=== PATIENT | male | born 1980 | race Caucasian/White ===

== ENCOUNTER 2020-01-03 14:52 | Emergency (ER) | payer OTHER, SELFPAY ==
[2020-01-03 15:26] VITALS: BP 97/58; PULSE 72; RESP 18; TEMP 36.7; O2SAT 98; BMI 25.8
--- NOTE | 2020-01-03 17:54 | CT_ITS ---
EXAMINATION: CT ABDOMEN AND PELVIS WITH CONTRAST CLINICAL INFORMATION: PT C N/V/D AND RLQ ABD PAIN X 2 DAYS ? APPY VS STONES COMPARISON: 02/15/2017 CT scan TECHNIQUE: Multidetector volumetric imaging was performed from the superior aspect of the liver through the pubic symphysis following administration of 100 mL Omnipaque 350 intravenous contrast. Sagittal and coronal reformatted images were obtained on the technologist workstation.. This CT examination was performed using dose optimization techniques as appropriate, variously including the following: *Automated exposure control *Adjustment of mA and/or kV according to patient size (this includes techniques or standardized protocols for targeted exams where dose is matched to indication/reason for exam; i.e. extremities or head) *Use of iterative reconstruction technique DLP: 434 mGy-cm FINDINGS: LUNG BASES: Mild linear scarring or atelectasis at the right base. LIVER, GALLBLADDER, AND BILIARY TREE: The liver is normal in size, shape, and attenuation. No focal hepatic lesion or biliary ductal dilatation is present. The gallbladder is unremarkable with no evidence of radiopaque gallstones, gallbladder wall thickening, or obvious pericholecystic inflammatory changes. PANCREAS: Unremarkable. SPLEEN: Unremarkable. ADRENAL GLANDS: Unremarkable. KIDNEYS AND URETERS: The kidneys are normal in size, shape, and attenuation. No hydronephrosis, hydroureter, or calculi seen. No perinephric stranding. BLADDER: Unremarkable. GASTROINTESTINAL TRACT: There is scattered colonic diverticulosis but no evidence for diverticulitis. No colonic wall thickening or pericolonic inflammatory changes. Normal-appearing appendix in the right lower quadrant. Visualized small bowel unremarkable. ABDOMINAL WALL: No significant hernia is appreciated. LYMPHOVASCULAR STRUCTURES: No lymphadenopathy. The aorta is unremarkable. PELVIC VISCERA: Unremarkable. OSSEOUS STRUCTURES: Unremarkable. CT/CT abdomen pelvis w con IMPRESSION: No acute intra-abdominal process. No significant change from the 2017 study.
--- NOTE | 2020-01-03 17:55 | ED.NAVMDI ---
HPI - Nausea/Vomiting/Diarrhea General Chief complaint: Nausea/Vomiting/Diarrhea Stated complaint: VOMITING,ABDOMINAL PAIN,FEVER Time Seen by Provider: 01/03/20 17:32 Source: patient Mode of arrival: ambulatory Limitations: no limitations History of Present Illness HPI Narrative: 39yoM c PMHx of dementia and seizure disorder presenting to the ED c c/o N/V/D and RLQ bd pain x 2 days. Denies any other symptoms complaints or concerns at this time. Denies recent travel or sick contacts. Denies bad food exposure. Related Data Previous Rx's Medication Instructions Recorded levetiracetam 1,000 mg tablet 1,000 mg PO BID 30 Days #60 tab 12/15/19 Allergies Allergy/AdvReac Type Severity Reaction Status Date / Time tramadol Allergy Unknown seizure Verified 08/20/18 00:00 No Known Allergies Allergy Unverified 11/24/19 16:19 [No Known Allergies*] Buproprion Allergy Unknown nausea and Uncoded 08/20/18 00:00 vomiting Review of Systems Review of Systems: Constitutional : No Fever, No Chills, Cardiovascular : No Chest Pain, No SOB Respiratory : No Cough, No Sputum Gastrointestinal : + Nausea, + Vomiting, + Diarrhea, + abdominal Pain, No Hematochezia, No Melena Genitourinary : No Dysuria, No Urinary Frequency, No Hematuria, No Urinary Incontinence, No Urgency, No Flank Pain Musculoskeletal : No joint pain, No Myalgias, No Joint Swelling Skin : No Skin Lesions, No rash Neuro : No Weakness, No Numbness, No Paresthesias, No Loss of Consciousness, No Dizziness, No Headache Heme/Lymph: No Lymphadenopathy Yes all other systems are reviewed and are negative [facility] Past Medical History Attestation statement: The following information was validated with the patient. Medical History Dementia Seizures Social History Social History Smoking Status: Current every day smoker Use of substances other than those prescribed or required for medical reasons: No Advance Directives: No Advance Directives Information Provided: Yes Physical Exam Vital Signs: Vital Signs: Vital Signs Temp Pulse Resp BP Pulse Ox 01/03/20 18:09 87 14 119/78 01/03/20 15:26 98.0 F 72 18 97/58 L 98 Body Mass Index 25.8 vital signs have been reviewed as normal and appeared to be correct. Blood pressure normal. Heart rate normal. Respiration rate normal. Temperature normal. Oxygen saturation normal. Appearance: Alert. Oriented X3. No acute distress. Head: Normal external exam. Normocephalic. Atraumatic. No [place] signs noted. No raccoon eyes noted Eyes: PERRLA. EOMI. Conjunctiva and sclera normal. Eyelids normal. ENT: EAC normal. TM's Normal. Pharynx normal. Uvula midline. Moist mucous membranes. No trismus noted. No drooling noted. No muffled voice noted. Neck: Normal inspection. Neck supple. FROM. No adenopathy. Thyroid Normal. No meningeal signs. No neck mass noted. CVS: Normal heart rate and rhythm. Heart sound normal. No murmurs noted. Pulses normal throughout. Respiratory: No respiratory distress. Painless inspiration. Breath sounds normal. No wheezes/rales/rhonchi noted. Chest nontender. No accessory muscle usage noted or decreased air movement noted. Abdomen: Soft and TTP to RLQ. Bowel sounds normal in all 4 quadrants. No distention noted. No organomegaly noted. No visible injury noted. Back: No CVA tenderness. Full range of motion noted. Skin: Skin warm and dry. Normal skin color. Normal skin turgor. No rashes/lesions/lacerations noted. Extremities: No lower extremity edema. Extremities exhibit normal range of motion. Extremities nontender. Neuro: Oriented X 3. No motor deficit. No sensory deficit. Reflexes normal. Course Course Course Narrative: 17:34PM - 39yoM c PMHx of dementia and seizure disorder presenting to the ED c c/o N/V/D and RLQ bd pain x 2 days. Denies any other symptoms complaints or concerns at this time. Denies recent travel or sick contacts. Denies bad food exposure. - Concern for appendicitis vs kidney stone vs diverticulitis vs UTI. - Plan: Labs, CT scan of abd/pelvis c IV contrast. Provide symptomatic treatment with 4 mg of Zofran, 50 mg of Toradol, 1 L of fluids then re-evaluate. Reevaluation(s) Reevaluation #1: - all labs within normal limits. CT scan of abdomen and pelvis within normal limits no acute processes noted. Awaiting UA at this time. Will re-evaluate. Time: 19:31 Reevaluation #2: UA within normal limits no evidence of UTI. COVID swab pending at this time. Will DC home with symptomatic treatment as patient is tolerating p.o. at this time and instructions to return if any new or worsening symptoms to follow-up with primary care provider. Patient understands agrees the plan. Time: 20:20 MDM - Nausea/Vomiting/Diarrhea Medical Records Attestation: I reviewed the patient's medical records. Lab Data Attestation: I reviewed the patient's lab results. Result diagrams: 01/03/20 17:54 01/03/20 17:53 Labs: Lab Results 01/03/20 01/03/20 01/03/20 Range/Units 17:53 17:54 17:54 WBC 10.0 (4.8-10.8) X10*3/uL RBC 4.50 L (4.60-5.80) X10*6/uL Hgb 13.1 L (14.0-18.0) g/dl Hct 39.9 L (42-52) % MCV 88.7 (80-98) fL MCH 29.1 (27.0-33.0) pg MCHC 32.8 (31.0-36.0) g/dl RDW 13.4 (11.0-16.0) % Plt Count 190 (160-400) X10*3/uL MPV 9.6 (9.4-12.4) fL Immature Gran % (Auto) 0.4 (0.0-0.4) % Neut % (Auto) 78.0 H (45-73) % Lymph % (Auto) 15.9 L (20-40) % [place] % (Auto) 5.3 (2-11) % Eos % (Auto) 0.1 (0-4) % Baso % (Auto) 0.3 (0-2) % Lymph # (Auto) 1.6 (1.2-4.9) X10*3/uL [place] # (Auto) 0.5 (0.1-1.2) X10*3/uL Eos # (Auto) 0.0 (0.0-0.4) X10*3/uL Baso # (Auto) 0.0 (0.0-0.2) X10*3/uL Abs Immat Gran (auto) 0.04 H (0.00-0.03) X10*3/uL Absolute Neuts (auto) 7.8 (2.0-8.3) X10*3/uL Absolute Nucleated RBC 0.000 (0.0-0.012) X10*3/uL Nucleated RBC % (auto) 0.0 (0.0-0.2) /100WBC PT 14.0 H (10.8-13.0) SEC INR 1.2 H (0.9-1.1) Sodium 139 (135-145) mmol/L Potassium 4.4 (3.3-5.1) mmol/l Chloride 100 (96-108) mmol/L Carbon Dioxide 30 H (22-29) mmol/L Anion Gap 13 (12-20) BUN 14 (9-16) mg/dL Creatinine 0.78 (0.5-1.4) mg/dL Estim Creat Clear Calc 115.8 Estimated GFR > 60 Random Glucose 107 (60-115) mg/dL Calcium 9.1 (8.4-10.2) mg/dL Magnesium 2.3 (1.6-2.6) mg/dL Total Bilirubin 0.5 (0.0-1.0) mg/dL Direct Bilirubin 0.2 (0.0-0.5) mg/dL AST 30 (5-37) U/L ALT 29 (0-40) U/L Alkaline Phosphatase 69 (39-117) U/L Total Protein 7.7 (6.5-8.0) g/dL Albumin 4.5 (3.5-5.0) g/dL Urine Color Urine Appearance Urine pH (5.0-8.0) Ur Specific [place] (1.005-1.025) Urine Protein (NEG-TRACE) MG/DL Urine Glucose (UA) (NEG) MG/DL Urine Ketones (NEG) MG/DL Urine Blood (NEG) Urine Nitrite (NEG) Ur Leukocyte Esterase (NEG) Urine RBC (0) /HPF Urine WBC (0-4) /HPF Ur Squamous Epith Cells /LPF Urine Bacteria /LPF 01/02/ Range/Units 19:25 WBC (4.8-10.8) X10*3/uL RBC (4.60-5.80) X10*6/uL Hgb (14.0-18.0) g/dl Hct (42-52) % MCV (80-98) fL MCH (27.0-33.0) pg MCHC (31.0-36.0) g/dl RDW (11.0-16.0) % Plt Count (160-400) X10*3/uL MPV (9.4-12.4) fL Immature Gran % (Auto) (0.0-0.4) % Neut % (Auto) (45-73) % Lymph % (Auto) (20-40) % [place] % (Auto) (2-11) % Eos % (Auto) (0-4) % Baso % (Auto) (0-2) % Lymph # (Auto) (1.2-4.9) X10*3/uL [place] # (Auto) (0.1-1.2) X10*3/uL Eos # (Auto) (0.0-0.4) X10*3/uL Baso # (Auto) (0.0-0.2) X10*3/uL Abs Immat Gran (auto) (0.00-0.03) X10*3/uL Absolute Neuts (auto) (2.0-8.3) X10*3/uL Absolute Nucleated RBC (0.0-0.012) X10*3/uL Nucleated RBC % (auto) (0.0-0.2) /100WBC PT (10.8-13.0) SEC INR (0.9-1.1) Sodium (135-145) mmol/L Potassium (3.3-5.1) mmol/l Chloride (96-108) mmol/L Carbon Dioxide (22-29) mmol/L Anion Gap (12-20) BUN (9-16) mg/dL Creatinine (0.5-1.4) mg/dL Estim Creat Clear Calc Estimated GFR Random Glucose (60-115) mg/dL Calcium (8.4-10.2) mg/dL Magnesium (1.6-2.6) mg/dL Total Bilirubin (0.0-1.0) mg/dL Direct Bilirubin (0.0-0.5) mg/dL AST (5-37) U/L ALT (0-40) U/L Alkaline Phosphatase (39-117) U/L Total Protein (6.5-8.0) g/dL Albumin (3.5-5.0) g/dL Urine Color YELLOW Urine Appearance CLEAR Urine pH 7.5 (5.0-8.0) Ur Specific [place] <= 1.005 (1.005-1.025) Urine Protein NEG (NEG-TRACE) MG/DL Urine Glucose (UA) NEG (NEG) MG/DL Urine Ketones NEG (NEG) MG/DL Urine Blood TRACE (NEG) Urine Nitrite NEG (NEG) Ur Leukocyte Esterase NEG (NEG) Urine RBC 0-2 (0) /HPF Urine WBC 0-2 (0-4) /HPF Ur Squamous Epith Cells TRACE /LPF Urine Bacteria TRACE /LPF Imaging Data CT scan - abdomen: Attestation: I personally reviewed and interpreted this imaging study as follows: Radiologist's impression: FINDINGS: LUNG BASES: Mild linear scarring or atelectasis at the right base. LIVER, GALLBLADDER, AND BILIARY TREE: The liver is normal in size, shape, and attenuation. No focal hepatic lesion or biliary ductal dilatation is present. The gallbladder is unremarkable with no evidence of radiopaque gallstones, gallbladder wall thickening, or obvious pericholecystic inflammatory changes. PANCREAS: Unremarkable. SPLEEN: Unremarkable. ADRENAL GLANDS: Unremarkable. KIDNEYS AND URETERS: The kidneys are normal in size, shape, and attenuation. No hydronephrosis, hydroureter, or calculi seen. No perinephric stranding. BLADDER: Unremarkable. GASTROINTESTINAL TRACT: There is scattered colonic diverticulosis but no evidence for diverticulitis. No colonic wall thickening or pericolonic inflammatory changes. Normal-appearing appendix in the right lower quadrant. Visualized small bowel unremarkable. ABDOMINAL WALL: No significant hernia is appreciated. LYMPHOVASCULAR STRUCTURES: No lymphadenopathy. The aorta is unremarkable. PELVIC VISCERA: Unremarkable. OSSEOUS STRUCTURES: Unremarkable. CT/CT abdomen pelvis w con IMPRESSION: No acute intra-abdominal process. No significant change from the 2017 study. Discharge Plan Discharge Prescriptions: No Action levetiracetam 1,000 mg tablet 1,000 mg PO BID 30 Days Qty: 60 RF: 0
[2020-01-03] MEDS: 0.9 % Sodium Chloride 1,000 ML 999 ML IVCONT (17:56)
[2020-01-03 18:03] LABS: MANUAL DIFF FLAG NO
[2020-01-03 18:08] LABS: Basophils Percent Auto 0.3 % (0-2); Eosinophils Percent Auto 0.1 % (0-4); Hematocrit 39.9 % (42-52); Hemoglobin 13.1 g/dl (14.0-18.0); Imm Gran Abs Auto 0.04 X10*3/uL (0.00-0.03); Imm Gran Pct Auto 0.4 % (0.0-0.4); Lymphocytes Absolute Auto 1.6 X10*3/uL (1.2-4.9); Lymphocytes Percent Auto 15.9 % (20-40); Mean Corpuscular HGB Conc 32.8 g/dl (31.0-36.0); Mean Corpuscular Hemoglobin 29.1 pg (27.0-33.0); Mean Corpuscular Volume 88.7 fL (80-98); Mean Platelet Volume 9.6 fL (9.4-12.4); Monocytes Absolute Auto 0.5 X10*3/uL (0.1-1.2); Monocytes Percent Auto 5.3 % (2-11); Neutrophils Absolute Auto 7.8 X10*3/uL (2.0-8.3); Platelet Count 190 X10*3/uL (160-400); Red Cell Distribution Width 13.4 % (11.0-16.0)
[2020-01-03] MEDS: ondansetron HCL 4 MG/2 ML VIAL IVPUSH (18:08)
[2020-01-03 18:09] VITALS: BP 119/78; PULSE 87; RESP 14
[2020-01-03] MEDS: Ketorolac Tromethamine 15 MG/ML VIAL IV (18:09)
[2020-01-03 18:14] LABS: INTERNATIONAL NORM RATIO 1.2 (0.9-1.1)
[2020-01-03 18:42] LABS: Alanine Aminotransferase 29 U/L (0-40); Albumin Level 4.5 g/dL (3.5-5.0); Alkaline Phosphatase 69 U/L (39-117); Anion Gap 13 (12-20); Aspartate Amino Transferase 30 U/L (5-37); Bilirubin Direct 0.2 mg/dL (0.0-0.5); Bilirubin Total 0.5 mg/dL (0.0-1.0); Blood Urea Nitrogen 14 mg/dL (9-16); Calcium 9.1 mg/dL (8.4-10.2); Carbon Dioxide 30 mmol/L (22-29); Chloride 100 mmol/L (96-108); Creatinine Clr Calc Pharmacy 115.8; Estimated Glomerular Filt Rate > 60; Glucose Random 107 mg/dL (60-115); Magnesium 2.3 mg/dL (1.6-2.6); Potassium 4.4 mmol/l (3.3-5.1); Sodium 139 mmol/L (135-145); Total Protein 7.7 g/dL (6.5-8.0)
[2020-01-03] MEDS: iohexoL 350 MG/ML 100 ML INFUS..BTL IV (19:00)
[2020-01-03 19:32] LABS: Glucose Urine UA NEG (NEG); Leukocyte Esterase Urine NEG (NEG); Nitrite Urine NEG (NEG); PH 7.5 (5.0-8.0); Specific Gravity - Urine <= 1.005 (1.005-1.025); Urine Blood TRACE (NEG); Urine Ketones NEG (NEG); Urine Protein NEG (NEG-TRACE)
[2020-01-03 19:37] LABS: RBC Urine 0-2 /HPF (0); WBC Urine 0-2 /HPF (0-4)
[2020-01-03 19:38] LABS: Bacteria Urine TRACE /LPF; Squamous Epithelial Cell Urine TRACE /LPF
[2020-01-03 19:56] LABS: Appearance Urine CLEAR; Color Urine YELLOW
[2020-01-03 20:21] LABS: SARS COV2 PCR INHOUSE NEGATIVE (Negative)
[2020-01-03 20:36] VITALS: BP 91/42; PULSE 61; RESP 18; TEMP 37.2; O2SAT 98
== END 2020-01-03 20:42 | disposition home or self-care (01) ==
PROVIDERS: Physician Assistant Medical; Emergency Provider Internal Medicine; PCP Internal Medicine
DX: R10.31 Right lower quadrant pain (principal); G40.909 Epilepsy, unspecified, not intractable, without status epilepticus; F17.200 Nicotine dependence, unspecified, uncomplicated; Z20.828 Contact with and (suspected) exposure to other viral communicable diseases; Z71.6 Tobacco abuse counseling; Z79.899 Other long term (current) drug therapy
CPT/HCPCS: 36415; 74177; 80048; 80076; 81001; 83735; 85025; 85610; 87635; 96361; 96374; 96375; 96376; 99284; J1885; J2405; Q9967

== ENCOUNTER 2021-06-27 19:42 | Emergency (ER) | payer OTHER, SELFPAY ==
[2021-06-27 19:51] VITALS: BP 120/72; PULSE 87; RESP 18; TEMP 36.5; O2SAT 96; BMI 27.4
[2021-06-27] MEDS: LORazepam 1 MG TABLET PO (22:40)
[2021-06-27 22:45] VITALS: PULSE 77; RESP 17; O2SAT 97
[2021-06-27 22:48] VITALS: BP 118/69
--- NOTE | 2021-06-27 22:53 | ED_ITS ---
HPI - Seizure General Chief Complaint: Seizure Stated Complaint: Seizure Time Seen by Provider: 06/27/21 22:30 Source: patient and family (Father at the bedside who is a poor historian) Mode of arrival: ambulatory Limitations: no limitations and other (Patient poor historian) History of Present Illness HPI Narrative: This is a 40-year-old past medical history significant for epilepsy presenting to the emergency department complaints of seizure, this was a witnessed seizure that occurred prior to his arrival. According to father patient had a long- lasting seizure at the grocery store, he tells me that when it started he lowered patient down to a chair, he tells me his arms and legs were shaking. Patient tells me he felt like the seizure was coming on. He tells me he feels fine now, other than a diffuse headache which he describes as intermittent, stabbing he tells me it feels like his typical headache after seizures. He tells me the reason he had his seizure is because he ran out a seizure medicati ons. Patient tells me that he does not want to be in the hospital he did not want lab work or any scans. He tells me he wants to go home and does not want a stay. He tells me he will sign paperwork to leave against medical advice. I tried to educate patient he should stay for further evaluation he tells me that he does not want to stay. He denies chest pain, shortness of breath, fevers, chills, nausea, vomiting, trauma head, dizziness, vision changes. Patient answering questions appropriately alert and oriented x4. No bladder bowel incontinence. Patient denies recent illness, denies drugs, alcohol and tobacco. According to father there was a short episode of post event confusion/postictal state. To note, father also poor historian complaint: seizure Onset (ago): hour(s) (1) Description of Episode: loss of consciousness, tonic-clonic movement and post- event confusion -: minutes(s) (Unclear, patient's as a few seconds, father says 30 minutes. ) Witnessed: Yes - by Other (Yes father) Trauma: No Seizure History: Yes Place: Groceries Possible Precipitating Event: none Associated symptoms: denies other symptoms Treatments prior to arrival: none Related Data Previous Rx's Medication Instructions Recorded naproxen 500 mg tablet 500 mg PO BID PRN #10 tab 01/03/20 ondansetron HCl 4 mg tablet 4 mg PO Q6H PRN #10 tab 01/03/20 (Zofran) omeprazole 40 mg capsule,delayed 40 mg PO DAILY 90 Days #90 cap 07/16/20 release levetiracetam 1,000 mg tablet 1,000 mg PO BID 90 Days #180 tab 04/16/21 levetiracetam 1,000 mg tablet 1,000 mg PO BID 10 Days #20 tab 06/27/21 Allergies Allergy/AdvReac Type Severity Reaction Status Date / Time bupropion Allergy Unknown nausea and Verified 01/04/20 14:16 vomitting tramadol Allergy Unknown seizure Verified 01/04/20 14:16 Review of Systems Review of Systems: Constitutional : No Weight loss, No Fever, No Chills, No Fatigue, No Malaise ENT/Mouth : No sore throat, No Rhinorrhea Eyes: No Eye Pain, No Swelling, No Redness Cardiovascular : No Chest Pain, No SOB, No Dyspnea on Exertion, No Orthopnea, No Edema, No Palpitations Respiratory : No Cough, No Sputum, No Wheezing Gastrointestinal : No Nausea, No Vomiting, No Diarrhea, No Constipation, No abdominal Pain, No Hematochezia, No Melena Genitourinary : No Dysuria, No Urinary Frequency, No Hematuria, Musculoskeletal : No joint pain, No Myalgias, No Joint Swelling Skin : No Skin Lesions, No rash Neuro : No Weakness, No Numbness, No Dizziness, + Headache Psych : No Anxiety/Panic, No Depression All other systems reviewed and are negative Yes all other systems are reviewed and are negative [facility] Past Medical History Attestation statement: The following information was validated with the patient. Source: old records reviewed and nursing notes reviewed Medical History Anxiety and depression Diaphragmatic hernia GERD (gastroesophageal reflux disease) Migraine Polysubstance abuse Psychogenic nonepileptic seizure Right rib fracture Skull fracture Thrombocytopenia Tobacco abuse Vitamin D deficiency Family History Family History Father Diabetes Mother Chronic mental illness Breast cancer Dementia Maternal Grandmother Lung cancer Maternal Grandfather Lung cancer Social History Social History Advance Directives: No Physical Exam Vital Signs: Vital Signs: Last Vital Signs Temp 97.7 F 06/27/21 19:51 Pulse 77 06/27/21 22:45 Resp 17 06/27/21 22:45 BP 118/69 06/27/21 22:48 Pulse Ox 97 06/27/21 22:45 BMI result Body Mass Index 27.4 Vital signs stable Appearance: Alert.? Oriented X3.? No acute distress.? Head: Normocephalic, atraumatic, no step-offs or deformities Eyes: Pupils equal, round and reactive to light.? ENT: Pharynx normal.? Neck: Normal inspection.? Neck supple.? CVS: Normal heart rate and rhythm.? Pulses normal.? Respiratory: No respiratory distress.? Breath sounds normal.? Abdomen: Soft and nontender.? Skin: Skin warm and dry.? Normal skin color.? Normal skin turgor.? Extremities: No lower extremity edema.? No calf ttp. 5/5 strength to bilateral upper and lower extremities Back: No midline tenderness, no C-spine tenderness, full range of motion, no CVA tenderness bilaterally Neuro: Oriented X 3.? No motor deficit.? No sensory deficit. CN 2-12 intact Course Reevaluation(s) Reevaluation #1: Patient continues to tell me that he would like to leave against medical advice. Refusing all labs, imaging, cardiac monitoring. Explained risks and benefits to patient. Patient tells me he would like to leave. I will refill patient's Keppra prescription at 1000 mg p.o. b.i.d. times 10 days. I advised him to follow-up with his PCP to discuss dosage, and to fill his prescription [place]. Advised him to return at any time. Advised him on worrisome signs and symptoms. Patient tells me he does not want to stay even after warning him of all the potential risks. He tells me he cannot stay as he has a monitor on his ankle and it is going to he says. He tells me it is not up for discussion. Time: 23:01 MDM - Seizure MDM Narrative Medical decision making narrative: [id number] 40-year-old male presents to the emergency department status post seizure. He was brought in by his brother. Father at the bedside who witness patient's seizure. Patient does not want labs or imaging done. He just wants a refill on his Keppra. Patient and father poor historians unable to obtain a clear history. Patient tells me he ran out of his medication. Physical examination benign. Patient tells me he feels well. Regular rate and rhythm. Lungs clear. Neuro exam nonfocal. No nystagmus noted. Abdomen soft nontender nondistended. No evidence signs of trauma. Plan at this time is to order labs, imaging. I will give 1 mg of Ativan p.o.. Medical Records Attestation: I reviewed the patient's medical records. Lab Data Attestation: I reviewed the patient's lab results. Critical Care Time Critical Care Time Critical Care Time: No Discharge Plan Discharge Clinical Impression: Seizure, Left against medical advice Patient Disposition: Left Against Medical Advice Instructions: Nonepileptic Seizures (ED), Recurrent Seizures in Adults (ED), Epilepsy in Older Adults (ED) Additional Instructions: Take your medications as prescribed. If you were prescribed antibiotics today, it is important that you take your medication to their entirety, do not skip any doses, do not finish them early. Follow-up with your primary care provider this week. Return to the emergency department with new or worsening symptoms. Such as fevers, chills, chest pain, shortness of breath, nausea, vomiting, dizziness, headache, vision changes, lethargy In case of emergency call 911 You decided to leave against medical advice which means that there could be decreased quality of life, worsening symptoms, heart attack, stroke, , more seizures, new symptoms, undiagnosed medical concerns/issues. I gave you a 10 day supply of your seizure medications you should call your PCP in asked him to fill your prescription. Prescriptions: New levetiracetam 1,000 mg tablet 1,000 mg PO BID 10 Days Qty: 20 0RF No Action omeprazole 40 mg capsule,delayed release(DR/EC) 40 mg PO DAILY 90 Days Qty: 90 2RF levetiracetam 1,000 mg tablet 1,000 mg PO BID 90 Days Qty: 180 0RF ondansetron HCl [Zofran] 4 mg tablet 4 mg PO Q6H PRN (Reason: nausea and vomiting) Qty: 10 0RF naproxen 500 mg tablet 500 mg PO BID PRN (Reason: pain) Qty: 10 0RF Referrals: Terry Pritchard MD [Primary Care Provider] - 2 days Stand Alone Forms: Against Medical Advice
[2021-06-27] MEDS: levETIRAcetam 1,000 MG TABLET 1000 MG PO (22:57)
== END 2021-06-27 23:06 | disposition left against medical advice (07) ==
PROVIDERS: Emergency Provider Internal Medicine; PCP Internal Medicine
DX: R56.9 Unspecified convulsions (principal); Z79.899 Other long term (current) drug therapy
CPT/HCPCS: 99283; 99284

== ENCOUNTER 2022-02-11 14:11 | Emergency (ER) | payer OTHER, SELFPAY ==
--- NOTE | ~2022-02-11 | XR_ITS ---
EXAMINATION: XR CHEST CLINICAL INFORMATION: Seizure yesterday. COMPARISON: Chest radiographs dated 02/14/2017, CT scans of the abdomen and pelvis dated 01/03/2020 TECHNIQUE: Frontal view of the chest was obtained. FINDINGS: The lungs are clear. There are no pleural effusions. The heart and mediastinal structures are unremarkable. A central right diaphragmatic hernia is again seen without significant change. XR/XR chest 1V IMPRESSION: 1. No acute cardiopulmonary process. 2. Right diaphragmatic hernia without significant change.
--- NOTE | 2022-02-11 14:55 | ED_ITS ---
HPI - General Adult General Chief complaint: Seizure <Katarina Velez MD - Last Filed: 02/11/22 15:00> Stated complaint: Needs medication for seizures <Katarina Velez MD - Last Filed: 02/11/22 15:00> Time Seen by Provider: 02/11/22 17:19 <Katarina Velez MD - Last Filed: 02/11/22 15:00> Source: patient <NORMAN Gutierrez - Last Filed: 02/11/22 19:40> Mode of arrival: ambulatory <NORMAN Gutierrez - Last Filed: 02/11/22 19:40> History of Present Illness HPI narrative: 41-year-old male with a past medical history anxiety, depression, GERD, migraines, polysubstance abuse, thrombocytopenia, epilepsy on Keppra, presenting to the ED complaining c/o seizure yesterday, and running out of Keppra today. States has been incarcerated and unable to see PCP thus ran out of medications. Reports ran out today. Admits seizure yesterday with +chin strike, denies urinary incontinence/tongue biting. Tetanus unknown. Denies headache, nausea, vomiting, numbness, tingling, weakness, CP/SOB, abdominal pain, fever, N/V, cough <NORMAN Gutierrez - Last Filed: 02/11/22 19:40> Onset (ago): day(s) <NORMAN Gutierrez - Last Filed: 02/11/22 19:40> Related Data Home medications: Previous Rx's Medication Instructions Recorded naproxen 500 mg tablet 500 mg PO BID PRN pain #10 tabs 01/03/20 ondansetron HCl 4 mg tablet 4 mg PO Q6H PRN nausea and 01/03/20 (Zofran) vomiting #10 tabs omeprazole 40 mg capsule,delayed 40 mg PO DAILY 90 days #90 caps 07/16/20 release levetiracetam 1,000 mg tablet 1,000 mg PO BID 90 days #180 tabs 04/16/21 levetiracetam 1,000 mg tablet 1,000 mg PO BID 30 days #60 tabs 10/04/21 levetiracetam 1,000 mg tablet 1,000 mg PO BID 30 days #60 tabs 02/11/22 (Denise) <Katarina Velez MD - Last Filed: 02/11/22 15:00> Allergies/adverse reactions: Allergies Allergy/AdvReac Type Severity Reaction Status Date / Time bupropion Allergy Unknown nausea and Verified 01/04/20 14:16 vomitting tramadol Allergy Unknown seizure Verified 01/04/20 14:16 <Katarina Velez MD - Last Filed: 02/11/22 15:00> Review of Systems Review of Systems: Constitutional: No Fever, No Chills, No Fatigue, No Malaise ENT/Mouth: No Ear Pain, No Nasal Congestion, No sore throat, No Rhinorrhea, No Swallowing Difficulty Eyes: No Eye Pain, No Swelling, No Redness, No Vision Changes Cardiovascular: No Chest Pain, No SOB, No Edema, No Palpitations Respiratory: No Cough, No Sputum, No Dyspnea Gastrointestinal: No Nausea, No Vomiting, No Diarrhea, No Constipation, No Abdominal pain Genitourinary: No Dysuria, No Urinary Frequency, No Hematuria, No Urinary Incontinence/retention Musculoskeletal: No joint pain, No Myalgias, No Joint Swelling Skin: + Skin Lesions, No rash Neuro: No Weakness, No Numbness, No Paresthesias, +Seizure, No Dizziness, +Head strike, No Headache <NORMAN Gutierrez - Last Filed: 02/11/22 19:40> Yes all other systems are reviewed and are negative <NORMAN Gutierrez - Last Filed: 02/11/22 19:40> Constitutional: Constitutional: Reports as per HPI <NORMAN Gutierrez - Last Filed: 02/11/22 19:40> Neurologic: Denies Abnormal speech present <NORMAN Gutierrez - Last Filed: 02/11/22 19:40> [facility] Past Medical History Attestation statement: The following information was validated with the patient. <NORMAN Gutierrez - Last Filed: 02/11/22 19:40> Medical History: Medical History Anxiety and depression Diaphragmatic hernia GERD (gastroesophageal reflux disease) Migraine Polysubstance abuse Psychogenic nonepileptic seizure Right rib fracture Skull fracture Thrombocytopenia Tobacco abuse Vitamin D deficiency <Katarina Velez MD - Last Filed: 02/11/22 15:00> Family History Family History: Family History Father Diabetes Mother Chronic mental illness Breast cancer Dementia Maternal Grandmother Lung cancer Maternal Grandfather Lung cancer <Katarina Velez MD - Last Filed: 02/11/22 15:00> Social History Social History: Social History Advance Directives: No Advance Directives Information Provided: No <Katarina Velez MD - Last Filed: 02/11/22 15:00> Physical Exam ED Vital Signs: Vital Signs - 24 hr 02/11/22 14:56 02/11/22 19:26 Temperature 97.9 F 97.6 F Pulse Rate 74 63 Respiratory Rate 16 16 Blood Pressure 95/53 L 93/55 L Pulse Oximetry 100 98 Oxygen Delivery Method Room Air Room Air BMI result Body Mass Index 25.8 <Katarina Velez MD - Last Filed: 02/11/22 15:00> Vital Signs - 24 hr 02/11/22 14:56 02/11/22 19:26 Temperature 97.9 F 97.6 F Pulse Rate 74 63 Respiratory Rate 16 16 Blood Pressure 95/53 L 93/55 L Pulse Oximetry 100 98 Oxygen Delivery Method Room Air Room Air BMI result Body Mass Index 25.8 <NORMAN Gutierrez - Last Filed: 02/11/22 19:40> Const General: cooperative, healthy appearing and no acute distress <NORMAN Gutierrez - Last Filed: 02/11/22 19:40> Orientation/consciousness: patient oriented x3 <NORMAN Gutierrez - Last Filed: 02/11/22 19:40> Limitations: no limitations <NORMAN Gutierrez - Last Filed: 02/11/22 19:40> HENMT Head: Yes normal to inspection, Yes atraumatic, No Grande's sign and No palpable skull fracture <NORMAN Gutierrez - Last Filed: 02/11/22 19:40> Ears: hearing grossly normal bilaterally <NORMAN Gutierrez - Last Filed: 02/11/22 19:40> General nose exam: Normal external nose present <NORMAN Gutierrez - Last Filed: 02/11/22 19:40> Face and sinus: Yes laceration (+ scabbed over laceration noted to chin with mild tenderness to palpation.) <NORMAN Gutierrez - Last Filed: 02/11/22 19:40> Mouth: Normal oral and palatal mucosa present <Ayanna Rodas CA - Last Filed: 02/11/22 19:40> Teeth and gingiva: dentition normal <Ayanna Rodas CA - Last Filed: 02/11/22 19:40> Throat: Yes posterior oropharynx normal, Yes tonsils normal and Yes uvula midline <Ayanna Rodas CA - Last Filed: 02/11/22 19:40> Eyes General: appearance normal, both eyes and all related structures <Ayanna Rodas CA - Last Filed: 02/11/22 19:40> Pupils: Equal, round and reactive pupils present <Ayanna Rodas CA - Last Filed: 02/11/22 19:40> EOM: EOMs intact bilaterally <Ayanna Rodas CA - Last Filed: 02/11/22 19:40> Neck Other: no midline cervical spinous ttp <Ayanna Rodas CA - Last Filed: 02/11/22 19:40> Neck: Yes normal visual inspection and Yes no meningeal signs <Ayanna Rodas CA - Last Filed: 02/11/22 19:40> Resp Effort & Inspection: normal respiratory effort and no respiratory distress <NORMAN Gutierrez - Last Filed: 02/11/22 19:40> Auscultation: clear to auscultation bilaterally, no crackles, no rales and no rhonchi <Ayanna Rodas CA - Last Filed: 02/11/22 19:40> Cardio Rate: regular rate <NORMAN Gutierrez - Last Filed: 02/11/22 19:40> Heart sounds: S1 normal heart sound present and S2 normal heart sound present <NORMAN Gutierrez - Last Filed: 02/11/22 19:40> GI Inspection: Yes normal to inspection <Ayanna Rodas CA - Last Filed: 02/11/22 19:40> Palpation (GI): Soft to palpation, nontender, no guarding and not rigid <Ayanna Poulletitiat, PA - Last Filed: 02/11/22 19:40> General: Yes no CVA tenderness <Ayanna Pouliot, PA - Last Filed: 02/11/22 19:40> Back/Spine/Pelvis Other: No midline thoracic/lumbar spinous tenderness/step-off or deformity <Ayanna Pouliot, PA - Last Filed: 02/11/22 19:40> Back: no CVA tenderness <Ayanna Pouliot, PA - Last Filed: 02/11/22 19:40> Skin Rashes: no rashes <Ayanna Pouliot, PA - Last Filed: 02/11/22 19:40> Neuro General: patient oriented x3, gait normal, tone normal, no meningeal signs, no focal motor deficits and CN's II-XI intact bilaterally <Ayanna Poulletitiat, PA - Last Filed: 02/11/22 19:40> Cranial nerves: Yes CN's II-XII intact bilaterally and Yes Equal, round and reactive pupils present <Ayanna Poulletitiat, PA - Last Filed: 02/11/22 19:40> Cognition (Neuro): normal cognition <Ayanna Poulletitiat PA - Last Filed: 02/11/22 19:40> Speech: No Abnormal speech present <Ayanna Poulletitiat PA - Last Filed: 02/11/22 19:40> Gait exam (Neuro): Normal gait present <Ayanna Poulletitiat PA - Last Filed: 02/11/22 19:40> Motor exam (neuro): 5/5 motor strength present throughout, Pronator motor function not present and no tremor noted <Ayanna Poulletitiat, PA - Last Filed: 02/11/22 19:40> Coordination: [id number] test normal <Ayanna Poulletitiat PA - Last Filed: 02/11/22 19:40> Romberg Test: Negative <Ayanna Poulletitiat, PA - Last Filed: 02/11/22 19:40> Extrem General: Yes normal to inspection <Ayanna Rodas PA - Last Filed: 02/11/22 19:40> Course Course Course Narrative: 41M p/w request for seizure medication and states he had a seizure yesterday. Says [facility] and is having difficulty getting in to see a PCP for script renewals. VS Reviewed GEN: NAD EARS: wnl THROAT: wnl LUNGS: CTAB CVS: RRR ABD: NT/ND <Katarina Velez MD - Last Filed: 02/11/22 15:00> 41M p/w request for seizure medication and states he had a seizure yesterday. Says he got out of pen[facility] and is having difficulty getting in to see a PCP for script renewals. VS Reviewed GEN: NAD EARS: wnl THROAT: wnl LUNGS: CTAB CVS: RRR ABD: NT/ND -1756--mild leukocytosis of 15.1 > no evidence of infection, low suspicion for severe sepsis. H&H stable. Labs otherwise reassuring -COVID & flu negative -UA not infected. Tox screen positive for opiates, Fentanyl, and cocaine XR chest 1V IMPRESSION: 1.? No acute cardiopulmonary process. 2.? Right diaphragmatic hernia without significant change. >> will give patient 1 month supply of Keppra, instructed close follow-up with PCP/neurology. Pts BP appears chronically on lower side, asymptomatic at this time. <NORMAN Gutierrez - Last Filed: 02/11/22 19:40> Medications Administered Discontinued Medications Generic Name Dose Route Start Last Admin Trade Name Freq PRN Reason Stop Dose Admin Diphtheria/Tetanus/Acell Pertussis 0.5 ml 02/11/22 17:36 02/11/22 18:38 Diphth,Pertus(Acell),Tet Adult 0.5 Ml Syringe IM 02/11/22 17:37 0.5 ml .ONCE ONE Administration Levetiracetam 1,000 mg 02/11/22 17:37 02/11/22 18:37 Levetiracetam 1,000 Mg Tablet PO 02/11/22 17:38 1,000 mg ONCE ONE Administration <Katarina Velez MD - Last Filed: 02/11/22 15:00> Medications Administered Discontinued Medications Generic Name Dose Route Start Last Admin Trade Name Freq PRN Reason Stop Dose Admin Diphtheria/Tetanus/Acell Pertussis 0.5 ml 02/11/22 17:36 02/11/22 18:38 Diphth,Pertus(Acell),Tet Adult 0.5 Ml Syringe IM 02/11/22 17:37 0.5 ml .ONCE ONE Administration Levetiracetam 1,000 mg 02/11/22 17:37 02/11/22 18:37 Levetiracetam 1,000 Mg Tablet PO 02/11/22 17:38 1,000 mg ONCE ONE Administration <NORMAN Gutierrez - Last Filed: 02/11/22 19:40> Medical Decision Making Medical Decision Making MDM Narrative: 41-year-old male with a past medical history anxiety, depression, GERD, migraines, polysubstance abuse, thrombocytopenia, epilepsy on Keppra, presenting to the ED complaining c/o seizure yesterday, and running out of Keppra today. On exam mildly hypotensive, NAD, scabbed laceration noted to chin, no midline spinous tenderness, no focal neuro deficits. Per medication refill history patient had a month's supply of Keppra filled on 01/16/2022. Rule out metabolic/infectious etiologies. Low suspicion for ICH/fractures. Will update tetanus. Offered to further investigate scabbed laceration/possible repair however patient refused Plan: Labs, UA, tox screen, CXR, medication refill <NORMAN Gutierrez - Last Filed: 02/11/22 19:40> Differential Diagnoses: Differential diagnosis Differential Diagnosis: The differential diagnosis associated with the patient?s presentation includes: as above <NORMAN Gutierrez - Last Filed: 02/11/22 19:40> Lab Attestation: I reviewed the patient's lab results. <NORMAN Gutierrez - Last Filed: 02/11/22 19:40> Non-ED record review: Review of External (Non-ED) Record External record reviewed:: Office record, Outpatient record, Prior outpatient labs and Prior outpatient radiology <NORMAN Gutierrez Last Filed: 02/11/22 19:40> Discharge Plan Discharge Clinical Impression: Medication refill, Seizure <Katarina Velez MD - Last Filed: 02/11/22 15:00> Patient Disposition: Home, Self-Care <Katarina Velez MD - Last Filed: 02/11/22 15:00> Instructions: Epilepsy in Older Adults (ED) <Katarina Velez MD - Last Filed: 02/11/22 15:00> Additional Instructions: Your blood work was reassuring. Your chest x-ray is unremarkable. IT IS IMPORTANT FOR YOU TO FOLLOW-UP WITH YOUR PRIMARY CARE DOCTOR PRIOR TO RUNNING OUT OF HER MEDICATIONS. IF YOU HAVE ANOTHER SEIZURE, HIT YOUR HEAD, HAVE HEADACHE, NAUSEA/VOMITING OR WEAKNESS RETURN TO THE EMERGENCY DEPARTMENT IMMEDIATELY <Katarina Velez MD - Last Filed: 02/11/22 15:00> Prescriptions: New levetiracetam [Keppra] 1,000 mg tablet 1,000 mg PO BID 30 Days Qty: 60 0RF No Action omeprazole 40 mg capsule,delayed release(DR/EC) 40 mg PO DAILY 90 Days Qty: 90 2RF levetiracetam 1,000 mg tablet 1,000 mg PO BID 90 Days Qty: 180 0RF levetiracetam 1,000 mg tablet 1,000 mg PO BID 30 Days Qty: 60 1RF ondansetron HCl [Zofran] 4 mg tablet 4 mg PO Q6H PRN (Reason: nausea and vomiting) Qty: 10 0RF naproxen 500 mg tablet 500 mg PO BID PRN (Reason: pain) Qty: 10 0RF <Katarina Velez MD - Last Filed: 02/11/22 15:00> Referrals: Po,Terry Levy MD [Primary Care Provider] - 3 days <Katarina Velez MD - Last Filed: 02/11/22 15:00>
[2022-02-11 14:56] VITALS: BP 95/53; PULSE 74; RESP 16; TEMP 36.6; O2SAT 100; BMI 25.8
[2022-02-11 15:59] LABS: MANUAL DIFF FLAG NO
[2022-02-11 16:06] LABS: Basophils Absolute Auto 0.1 X10*3/uL (0.0-0.2); Basophils Percent Auto 0.5 % (0-2); Eosinophils Absolute Auto 0.2 X10*3/uL (0.0-0.4); Eosinophils Percent Auto 1.5 % (0-4); Hematocrit 41.9 % (42.0-52.0); Hemoglobin 13.6 g/dl (14.0-18.0); Imm Gran Abs Auto 0.07 X10*3/uL (0.00-0.03); Imm Gran Pct Auto 0.5 % (0.0-0.4); Lymphocytes Absolute Auto 2.1 X10*3/uL (1.2-4.9); Lymphocytes Percent Auto 13.8 % (20-40); Mean Corpuscular HGB Conc 32.5 g/dl (31.0-36.0); Mean Corpuscular Hemoglobin 29.2 pg (27.0-33.0); Mean Corpuscular Volume 89.9 fL (80.0-98.0); Mean Platelet Volume 9.3 fL (9.4-12.4); Monocytes Absolute Auto 1.1 X10*3/uL (0.1-1.2); Monocytes Percent Auto 7.1 % (2-11); Neutrophils Absolute Auto 11.6 x10*3/uL (2.0-8.3); Neutrophils Percent Auto 76.6 % (45-73); Platelet Count 213 X10*3/uL (160-400); Red Blood Count 4.66 X10*6/uL (4.60-5.80); White Blood Count 15.1 X10*3/uL (4.8-10.8)
[2022-02-11 16:16] LABS: Alanine Aminotransferase 21 U/L (0-40); Albumin Level 4.3 g/dL (3.5-5.0); Alkaline Phosphatase 95 U/L (39-117); Anion Gap 10 (12-20); Aspartate Amino Transferase 18 U/L (5-37); Bilirubin Total 0.4 mg/dL (0.0-1.0); Blood Urea Nitrogen 10 mg/dL (9-16); Calcium 9.3 mg/dL (8.4-10.2); Carbon Dioxide 32 mmol/L (22-29); Chloride 102 mmol/L (96-108); Estimated Glomerular Filt Rate > 60; Glucose Random 92 mg/dL (60-115); Potassium 4.9 mmol/L (3.3-5.1); Sodium 139 mmol/L (135-145); Total Protein 7.3 g/dL (6.5-8.0)
[2022-02-11 16:23] LABS: COVID-19 Test Negative (Negative); IDNOW Serial# 16C4AD1C; IDNOW Serial# BCCEAD1C; Influenza A Negative (Negative); Influenza B2 Negative (Negative)
[2022-02-11 17:57] LABS: Magnesium 2.1 mg/dL (1.6-2.6)
[2022-02-11] MEDS: levETIRAcetam 1,000 MG TABLET 1000 MG PO (18:37)
[2022-02-11 18:38] LABS: Appearance Urine Clear; Color Urine Dark Yellow; Glucose Urine UA Negative (Negative); Leukocyte Esterase Urine Trace (Negative); Nitrite Urine Negative (Negative); Specific Gravity - Urine 1.025 (1.005-1.025); UMIC TRIGGER UACC YES; Urine Blood Negative (Negative); Urine Ketones Trace mg/dL (Negative); Urine Protein Negative (Neg-Trace)
[2022-02-11] MEDS: Diphth,Pertus(ACell),Tet Adult 0.5 ML SYRINGE IM (18:38)
[2022-02-11 18:43] LABS: Bacteria Urine None Seen (None Seen); Hyaline Casts Urine 0-2 /LPF (0-2); RBC Urine 0-2 /HPF (0-2); Squamous Epithelial Cell Urine 0-2 /HPF (0-2); WBC Urine 0-5 /HPF (0-5)
[2022-02-11 18:48] LABS: Amphetamine Screen Urine Not Detected (Not Detect); Barbiturates, Urine Not Detected (Not Detect); Benzodiazepines Screen Urine Not Detected (Not Detect); Cannabinoid Screen Urine Not Detected (Not Detect); Cocaine Screen Urine POSITIVE (Not Detect); Fentanyl, urine POSITIVE (Not Detect); Opiate Screen Urine POSITIVE (Not Detect); Phencyclidine Screen Urine Not Detected (Not Detect)
[2022-02-11 19:26] VITALS: BP 93/55; PULSE 63; RESP 16; TEMP 36.4; O2SAT 98
[2022-02-11 19:39] VITALS: BP 96/56
[2022-02-15 09:08] LABS: Levetiracetam Keppra 25.5 mcg/mL (6.0-46.0)
== END 2022-02-11 20:02 | disposition home or self-care (01) ==
PROVIDERS: Physician Assistant; Emergency Provider Student in an Organized Health Care Education/Training Program; PCP Internal Medicine
DX: S00.91XA Abrasion of unspecified part of head, initial encounter (principal); R56.9 Unspecified convulsions; R07.89 Other chest pain; W01.0XXA Fall on same level from slipping, tripping and stumbling without subsequent striking against object, initial encounter; Y93.9 Activity, unspecified; Y92.9 Unspecified place or not applicable; Y99.9 Unspecified external cause status; Z20.822 Contact with and (suspected) exposure to COVID-19; Z79.899 Other long term (current) drug therapy
CPT/HCPCS: 36415; 71045; 80053; 80177; 80307; 81001; 83735; 85025; 87502; 87635; 90471; 90715; 99283; 99284

== ENCOUNTER 2022-07-08 00:23 | Emergency (ER) | payer MEDICAID, SELFPAY ==
[2022-07-08 01:00] VITALS: BP 115/73; PULSE 80; RESP 18; TEMP 36.4; O2SAT 96; BMI 23.9
[2022-07-08 05:43] VITALS: BP 105/45; PULSE 62; RESP 15; TEMP 36.6; O2SAT 98
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
== END 2022-07-08 07:19 | disposition home or self-care (01) ==
PROVIDERS: Emergency Provider Internal Medicine
DX: Z76.0 Encounter for issue of repeat prescription (principal); Z79.899 Other long term (current) drug therapy
CPT/HCPCS: 99282

== ENCOUNTER 2023-01-22 15:15 | Outpatient (REF) | payer MEDICAID, SELFPAY ==
--- NOTE | ~2023-01-22 | XR_ITS ---
EXAMINATION: XR LUMBOSACRAL SPINE CLINICAL INFORMATION: Reason for Exam PAIN COMPARISON: Lumbar spine radiographs 12/31/2016 TECHNIQUE: 3 views of the lumbar spine FINDINGS: 5 nonrib-bearing lumbar-type vertebral bodies. Vertebral body heights are maintained. Alignment is maintained. Mild degenerative disc disease at L3-L4 with minimal loss of disc space height and small anterior disc osteophyte complex new from prior. Paravertebral soft tissues are unremarkable. XR/XR lumbar spine 2-3V IMPRESSION: Mild degenerative disc disease at L3-L4 with minimal loss of disc space height and small anterior disc osteophyte complex new from prior.
== END 2023-01-22 15:16 | disposition home or self-care (01) ==
LOC: HO.HHCX 15:15
PROVIDERS: Visit Provider Family Medicine
DX: M54.50 Low back pain, unspecified (principal)
CPT/HCPCS: 72100

== ENCOUNTER 2023-11-25 13:17 | Emergency (ER) | payer MEDICAID, SELFPAY ==
[2023-11-25] VITALS (7 sets, daily range): BP systolic 82–101; BP diastolic 42–63; PULSE 44–107; RESP 8–17; TEMP 36.4–36.6; O2SAT 96–100; BMI 26.6
--- NOTE | ~2023-11-25 | CT_ITS ---
EXAMINATION: CT CERVICAL SPINE WITHOUT CONTRAST CLINICAL INFORMATION: Fall. Pain COMPARISON: None available. TECHNIQUE: Thin section axial imaging with sagittal and coronal reformats. This CT examination was performed using dose optimization techniques as appropriate, variously including the following: *Automated exposure control *Adjustment of mA and/or kV according to patient size (this includes techniques or standardized protocols for targeted exams where dose is matched to indication/reason for exam; i.e. extremities or head) *Use of iterative reconstruction technique DLP: 129 mGy-cm FINDINGS: No fracture or destructive process. There is degenerative spurring observed particularly C5-6 and C6-7 but no encroachment on the spinal canal. The prevertebral soft tissues appear normal. CT/CT cervical spine wo IV con IMPRESSION: Degenerative change noted. No fracture. Fleischner guidelines were followed. Electronically signed by: Julian Armendariz MD 11/25/2023 04:39 PM EDT
--- NOTE | ~2023-11-25 | CT_ITS ---
EXAMINATION: CT HEAD WITHOUT CONTRAST CLINICAL INFORMATION: Fall. Mental status change COMPARISON: None available. TECHNIQUE: Contiguous axial imaging was performed from the skull base to vertex without intravenous administration of contrast. This CT examination was performed using dose optimization techniques as appropriate, variously including the following: *Automated exposure control *Adjustment of mA and/or kV according to patient size (this includes techniques or standardized protocols for targeted exams where dose is matched to indication/reason for exam; i.e. extremities or head) *Use of iterative reconstruction technique DLP: 695 mGy-cm FINDINGS: No intra or extra-axial fluid collection or hemorrhage, mass, or mass effect. Calvarium intact. Moderate mucoperiosteal thickening is observed in the left maxillary sinus. Retrobulbar regions are intact. CT/CT head/brain wo IV con IMPRESSION: No acute intracranial findings. No evidence for calvarial fracture. Electronically signed by: Julian Armendariz MD 11/25/2023 04:36 PM EDT
--- NOTE | 2023-11-25 13:40 | ED.GENADULT ---
HPI - General Adult General Chief complaint: Seizure Stated complaint: 2 SZS TODAY PER EMS Time Seen by Provider: 11/25/23 13:40 Source: patient and EMS Mode of arrival: EMS Limitations: physical limitation (patient sedated) History of Present Illness ED Provider: Dayami Johns PA-C HPI narrative: Patient is a 43 year old assigned male at with a history of seizures (on Keppra), presenting to the emergency department today after a witnessed seizure. EMS states that the patient was with friends when he had a seizure then shortly after coming out of that one he seized again. EMS states that the patient confirmed he took his medication earlier today for his seizures as prescribed. EMS states that they gave the patient 4mg of Versed for seizures though his seizures had ended. Associated symptoms: seizure Related Data Previous Rx's ?Medication ?Instructions ?Recorded naproxen 500 mg tablet 500 mg PO BID PRN pain #10 tabs 01/03/20 ondansetron HCl 4 mg tablet 4 mg PO Q6H PRN nausea and 01/03/20 (Zofran) vomiting #10 tabs omeprazole 40 mg capsule,delayed 40 mg PO DAILY 90 days #90 caps 07/16/20 release levetiracetam 1,000 mg tablet 1,000 mg PO BID 90 days #180 tabs 04/16/21 levetiracetam 1,000 mg tablet 1,000 mg PO BID 30 days #60 tabs 10/04/21 levetiracetam 1,000 mg tablet 1,000 mg PO BID 30 days #60 tabs 02/11/22 (Keppra) levetiracetam 1,000 mg tablet 1,000 mg PO BID 20 days #40 tabs 07/08/22 (Keppra) Allergies Allergy/AdvReac Type Severity Reaction Status Date / Time bupropion Allergy Unknown nausea and Verified 11/25/23 13:59 vomitting tramadol Allergy Unknown seizure Verified 11/25/23 13:59 Review of Systems Review of Systems: Yes Unobtainable due to mental condition (patient sedated) Neurologic: Reports seizure-like activity [facility] Past Medical History Attestation statement: The following information was validated with the patient. Source: old records reviewed, nursing notes reviewed and other (EMS provided additional history) Medical History Right rib fracture Skull fracture Diaphragmatic hernia Migraine Psychogenic nonepileptic seizure Tobacco abuse Polysubstance abuse Thrombocytopenia Vitamin D deficiency Anxiety and depression GERD (gastroesophageal reflux disease) Family History Family History Father Diabetes Mother Chronic mental illness Breast cancer Dementia Maternal Grandmother Lung cancer Maternal Grandfather Lung cancer Social History Social History Smoked in Last 30 Days: Yes Use of substances other than those prescribed or required for medical reasons: No Advance Directives: No Advance Directives Information Provided: No Do you have a plan to hurt others: No Plan Physical Exam ED Vital Signs: Vital Signs - 24 hr 11/25/23 13:54 11/25/23 14:01 11/25/23 17:18 Temperature 97.7 F 97.7 F Pulse Rate 73 73 45 L Respiratory Rate 12 12 17 Blood Pressure 82/42 L 82/42 L 92/55 L Pulse Oximetry 97 97 100 Oxygen Delivery Method Room Air Room Air Room Air 11/25/23 18:45 11/25/23 20:13 11/25/23 22:32 Temperature 97.8 F 97.6 F 97.5 F Pulse Rate 44 L 50 45 L Respiratory Rate 8 L 16 14 Blood Pressure 93/60 96/49 L 93/63 Pulse Oximetry 100 99 100 Oxygen Delivery Method Room Air Room Air Room Air BMI result Body Mass Index 26.6 Const General: no acute distress and alert Nutritional Appearance: thin HENMT Head: Yes normal to inspection and Yes atraumatic Ears: hearing grossly normal bilaterally and external ears normal General nose exam: Normal external nose present, no nasal discharge noted and no epistaxis Face and sinus: Yes normal facial exam, No abrasion and No laceration Mouth: Normal oral and palatal mucosa present, no drooling and no muffled voice Eyes General: appearance normal, both eyes and all related structures Periorbital: periorbital findings normal Eyelids: Yes eyelids normal Conjunctivae: conjunctivae normal Pupils: Equal, round and reactive pupils present EOM: EOMs intact bilaterally Neck Neck: Yes normal visual inspection, Yes full ROM and Yes no lymphadenopathy Chest Chest palpation & inspection: normal inspection of the chest Resp Effort & Inspection: normal respiratory effort and able to speak in complete sentences Cardio Rate: bradycardic Rhythm: regular rhythm GI Inspection: Yes normal to inspection Neuro General: moves all extremities Cranial nerves: Yes Equal, round and reactive pupils present Cognition (Neuro): normal cognition Extrem General: Yes normal to inspection, Yes full ROM and Yes capillary refill normal Psych Appearance: grossly normal Mental Status: mental status grossly normal Affect: normal affect Attitude: cooperative Thought process: Normal thought process present Thought content: Normal thought content present Insight: Good insight present (Psych) Course Course Course Narrative: At 18:00 on 11/25/2023 patient was placed in physician observation. He remained drowsy but arouses easily to verbal stimuli. Maintaining end-tidal CO2 around 35-38, respiratory rate 12-14, noted to have bradycardia down to the 40s, evaluation in a sinus bradycardia and on arousal increased up to 60s. Soon falling back asleep. Serum labs he has a mild leukocytosis 12.0, normocytic anemia not meeting transfusion criteria, mild thrombocytopenia. VBG without acidosis. No significant electrolyte derangement. No EMILY. Viral panel negative. Declined to provide urinalysis for drugs of abuse screen. Denies drug usage although there was concerning paraphernalia found on him prior to my assumption of care. He has been placed in physician observation for further evaluation and determination as to whether he will require possible Narcan or further intervention. CT/CT head/brain wo IV con IMPRESSION: No acute intracranial findings. No evidence for calvarial fracture. CT/CT cervical spine wo IV con IMPRESSION: Degenerative change noted. No fracture Reevaluation(s) Reevaluation #1: Patient is awake alert conscious and oriented x3. When asked whether he knows why he is here he states maybe I had a seizure. He denies drug usage. He did declines the need for assistance with detox. Due to concerning paraphernalia found on him will provide him with take-home Narcan. He is ambulatory with a steady gait. Has no focal neurological deficits. At this time feel that he is stable for discharge. Physician observation ended Time: 22:43 Medications Administered Discontinued Medications Generic Name Dose Route Start Last Admin Trade Name Freq PRN Reason Stop Dose Admin Levetiracetam 1,000 mg in 100 mls @ 400 mls/hr 11/25/23 13:41 11/25/23 14:55 Keppra IV 11/25/23 13:55 Infused ONCE ONE Infusion Sodium Chloride 1,000 mls @ 999 mls/hr 11/25/23 14:15 11/25/23 17:20 Ns IV 11/25/23 15:15 Infused .Q1H1M JERRICA Infusion Sodium Chloride 1,000 mls @ 999 mls/hr 11/25/23 14:15 11/25/23 17:20 Ns IV 11/25/23 15:15 Infused .Q1H1M JERRICA Infusion Sodium Chloride 1,000 mls @ 999 mls/hr 11/25/23 18:45 11/25/23 20:33 Ns IV 11/25/23 19:45 Infused .Q1H1M JERRICA Infusion Medical Decision Making Medical Decision Making [facility] Narrative: Patient is a 43 year old assigned male at with a history of seizures (on Keppra) presenting to the emergency department today after multiple seizures. Patient's physical exam showed a somnolent and thin individual but was otherwise unremarkable. A white substance in small containers was found while undressing the patient - concerning for drug paraphernalia. Patient's blood work is pending. Patient's EKG was unremarkable. Patient's CT head and c-spine are pending. Patient signed out to evening NELA pending imaging and lab results. Differential Diagnosis Differential Diagnoses: The differential diagnosis associated with the presentation includes Polysubstance abuse / use Seizure disorder Admission/Observation Consideration of admission/observation: Escalation of care including admission/observation considered Patient's disposition will be determined after lab and imaging results. Lab Data [facility] Lab Attestation statement: I reviewed the patient's lab results. My interpretation of these results are in the MDM Rationale portion of this note. 11/25/23 16:39 11/25/23 16:00 Labs: Lab Results 11/25/23 11/25/23 11/25/23 Range/Units 16:00 16:04 16:39 WBC 12.0 H (4.8-10.8) X10*3/uL RBC 3.73 L (4.60-5.80) X10*6/uL Hgb 11.1 L (14.0-18.0) g/dl Hct 33.9 L (42.0-52.0) % MCV 90.9 (80.0-98.0) fL MCH 29.8 (27.0-33.0) pg MCHC 32.7 (31.0-36.0) g/dl RDW 13.4 (11.0-16.0) % Plt Count 149 L D (160-400) X10*3/uL MPV 9.3 L (9.4-12.4) fL Immature Gran % (Auto) 0.3 (0.0-0.4) % Neut % (Auto) 78.6 H (45-73) % Lymph % (Auto) 13.8 L (20-40) % [place] % (Auto) 6.7 (2-11) % Eos % (Auto) 0.3 (0-4) % Baso % (Auto) 0.3 (0-2) % Lymph # (Auto) 1.7 (1.2-4.9) X10*3/uL [place] # (Auto) 0.8 (0.1-1.2) X10*3/uL Eos # (Auto) 0.0 (0.0-0.4) X10*3/uL Baso # (Auto) 0.0 (0.0-0.2) X10*3/uL Abs Immat Gran (auto) 0.03 (0.00-0.03) X10*3/uL Absolute Neuts (auto) 9.4 H (2.0-8.3) x10*3/uL Absolute Nucleated RBC 0.000 (0.0-0.012) X10*3/uL Nucleated RBC % (auto) 0.0 (0.0-0.2) /100WBC VBG pH 7.33 (7.32-7.43) VBG pCO2 40 mmHg VBG pO2 34 mmHg VBG HCO3 21 L (22-26) mmol/L VBG O2 Saturation 55.0 % VBG Base Excess -3.8 mmol/L Sodium 141 (135-145) mmol/L Potassium 3.6 (3.3-5.1) mmol/L Chloride 111 H (96-108) mmol/L Carbon Dioxide 23 (22-29) mmol/L Anion Gap 11 L (12-20) BUN 16 (9-16) mg/dL Creatinine 1.09 (0.5-1.4) mg/dL Estim Creat Clear Calc 82.5 Estimated GFR > 60 Random Glucose 84 (60-115) mg/dL Calcium 8.8 (8.4-10.2) mg/dL Magnesium 2.8 H (1.6-2.6) mg/dL Total Bilirubin 0.3 (0.0-1.0) mg/dL AST 56 H (5-37) U/L ALT 23 (0-40) U/L Alkaline Phosphatase 69 (39-117) U/L Total Protein 7.5 (6.5-8.0) g/dL Albumin 4.4 (3.5-5.0) g/dL Influenza Type A (PCR) NEGATIVE (Negative) Influenza Type B (PCR) NEGATIVE (Negative) RSV RNA Qual (PCR) NEGATIVE (Negative) SARS-CoV-2 RNA (RT-PCR) NEGATIVE (Negative) Independent Historian Clinical information obtained from an independent historian. History obtained from or confirmed by: EMS (EMS provided additional history and confirmed the history provided by the patient.) Critical Care Time Critical Care Time Critical Care Time: Yes Total Critical Care Time: 42 Attestation: I spent 42 minutes of Critical Care Time with this patient. This does not include time spent on separately reported billable procedures. Discharge Plan Discharge Clinical Impression: Seizure Patient Disposition: Still a Patient Prescriptions: No Action omeprazole 40 mg capsule,delayed release(DR/EC) 40 mg PO DAILY 90 Days Qty: 90 2RF levetiracetam 1,000 mg tablet 1,000 mg PO BID 90 Days Qty: 180 0RF levetiracetam 1,000 mg tablet 1,000 mg PO BID 30 Days Qty: 60 1RF ondansetron HCl [Zofran] 4 mg tablet 4 mg PO Q6H PRN (Reason: nausea and vomiting) Qty: 10 0RF naproxen 500 mg tablet 500 mg PO BID PRN (Reason: pain) Qty: 10 0RF levetiracetam [Keppra] 1,000 mg tablet 1,000 mg PO BID 30 Days Qty: 60 0RF levetiracetam [Keppra] 1,000 mg tablet 1,000 mg PO BID 20 Days Qty: 40 0RF Print Language: Belarusian
--- NOTE | 2023-11-25 13:41 | ECG_ITS ---
Test Reason : seizure Blood Pressure : / mmHG Vent. Rate : 073 BPM Atrial Rate : 073 BPM P-R Int : 168 ms QRS Dur : 076 ms QT Int : 424 ms P-R-T Axes : 066 062 062 degrees QTc Int : 467 ms Normal sinus rhythm with sinus arrhythmia Possible Left atrial enlargement Borderline ECG When compared with ECG of 11-JUL-2018 13:00, ST no longer elevated in Anterior leads QT has lengthened Referred By: Dayami Johns Electronically Signed By:DOMINIQUE HARTMAN
--- NOTE | 2023-11-25 14:04 | PC.NURSE ---
Pt comes to ED today via EMS, per report: seizure (tonic-colonic like) x2 today. 20g LAC 4 versed given. Pt is sleeping at time of arrival and is not able to be aroused. (+) rise and fall of chest noted, Pt is protecting his airway and respirations are slow even, and unlabored. Pt changed into hospital attire. suspicious container of a white substance fell out of Pts sock while changing. Security notified and Pts belongings searched and secured. Pt hypotensive, provider made aware.
[2023-11-25] MEDS: levETIRAcetam in NaCl (iso-os) 1,000 MG/100 ML PIGGYBACK 400 MG IV (14:29)
[2023-11-25] MEDS: 0.9 % Sodium Chloride 1,000 ML 999 ML IV ×3 (14:30→19:32)
[2023-11-25 16:10] LABS: VBG Base Excess -3.8 mmol/L; VBG HCO3 21 mmol/L (22-26); VBG pCO2 40 mmHg; VBG pH 7.33 (7.32-7.43); VBG pO2 34 mmHg
[2023-11-25 16:10] LABS: Venous Blood Gas Refer to POC result
[2023-11-25 16:24] LABS: Alanine Aminotransferase 23 U/L (0-40); Albumin Level 4.4 g/dL (3.5-5.0); Alkaline Phosphatase 69 U/L (39-117); Anion Gap 11 (12-20); Aspartate Amino Transferase 56 U/L (5-37); Bilirubin Total 0.3 mg/dL (0.0-1.0); Blood Urea Nitrogen 16 mg/dL (9-16); Calcium 8.8 mg/dL (8.4-10.2); Carbon Dioxide 23 mmol/L (22-29); Chloride 111 mmol/L (96-108); Creatinine Clr Calc Pharmacy 82.5; Estimated Glomerular Filt Rate > 60; Glucose Random 84 mg/dL (60-115); Magnesium 2.8 mg/dL (1.6-2.6); Potassium 3.6 mmol/L (3.3-5.1); Sodium 141 mmol/L (135-145); Total Protein 7.5 g/dL (6.5-8.0)
[2023-11-25 16:46] LABS: Basophils Percent Auto 0.3 % (0-2); Eosinophils Percent Auto 0.3 % (0-4); Hematocrit 33.9 % (42.0-52.0); Hemoglobin 11.1 g/dl (14.0-18.0); Imm Gran Abs Auto 0.03 X10*3/uL (0.00-0.03); Imm Gran Pct Auto 0.3 % (0.0-0.4); Lymphocytes Absolute Auto 1.7 X10*3/uL (1.2-4.9); Lymphocytes Percent Auto 13.8 % (20-40); Mean Corpuscular HGB Conc 32.7 g/dl (31.0-36.0); Mean Corpuscular Hemoglobin 29.8 pg (27.0-33.0); Mean Corpuscular Volume 90.9 fL (80.0-98.0); Mean Platelet Volume 9.3 fL (9.4-12.4); Monocytes Absolute Auto 0.8 X10*3/uL (0.1-1.2); Monocytes Percent Auto 6.7 % (2-11); Neutrophils Absolute Auto 9.4 x10*3/uL (2.0-8.3); Neutrophils Percent Auto 78.6 % (45-73); Platelet Count 149 X10*3/uL (160-400); Red Blood Count 3.73 X10*6/uL (4.60-5.80); Red Cell Distribution Width 13.4 % (11.0-16.0)
[2023-11-25 16:55] LABS: MANUAL DIFF FLAG NO
[2023-11-25 17:32] LABS: Influenza A PCR NEGATIVE (Negative); Influenza B PCR NEGATIVE (Negative); Resp Syncy Virus RNA Qual PCR NEGATIVE (Negative); SARS COV2 PCR INHOUSE NEGATIVE (Negative)
[2023-11-25] MEDS: Naloxone HCl Nasal TAKE HOME 4 MG SPRAY 8 MG NOSTRILALT (23:22)
--- NOTE | 2023-11-25 23:22 | PC.NURSE ---
NARCAN WAS FOR HOME NOT PLACED IN RIGHT NARE.
== END 2023-11-25 23:28 | disposition home or self-care (01) ==
PROVIDERS: Physician Assistant Medical; Emergency Provider Emergency Medicine
DX: R56.9 Unspecified convulsions (principal); R00.1 Bradycardia, unspecified; I49.9 Cardiac arrhythmia, unspecified; R94.31 Abnormal electrocardiogram [ECG] [EKG]; Z03.818 Encounter for observation for suspected exposure to other biological agents ruled out; Z79.899 Other long term (current) drug therapy
CPT/HCPCS: 0241U; 36415; 70450; 72125; 80053; 82803; 83735; 85025; 93005; 96361; 96365; 99285; J1953

== ENCOUNTER 2024-08-12 13:05 | Emergency (ER) | payer MEDICAID, SELFPAY ==
[2024-08-12 13:28] VITALS: BP 106/58; BP 113/64; PULSE 102; PULSE 95; RESP 18; TEMP 36.7; O2SAT 97; O2SAT 98; BMI 23.4
--- NOTE | 2024-08-12 13:34 | ECG_ITS ---
Test Reason : AARHYTHMIA Blood Pressure : */* mmHG Vent. Rate : 83 BPM Atrial Rate : 83 BPM P-R Int : 166 ms QRS Dur : 90 ms QT Int : 378 ms P-R-T Axes : 67 56 52 degrees QTcB Int : 444 ms Normal sinus rhythm Possible Left atrial enlargement Borderline ECG No previous ECGs available Referred By: Malini Evans Electronically Signed By: YANA MA
[2024-08-12 13:39] VITALS: BP 113/64; PULSE 95; RESP 18; TEMP 36.7; O2SAT 98
--- NOTE | 2024-08-12 13:46 | PC.NURSE ---
Pt comes to ED today via ambulance after an unwitnessed seizure. 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 Pt with known Hx seizures and is med compliant with Keppra. Pt c/o lower back pain that began after his seizure. Pt is A&Ox3 with VSS at this time. Pts coworker arrives and provides his contact information as he should be contacted upon Pts discharge--Pt in agreement with this plan. [place] @ [phone]
--- NOTE | 2024-08-12 13:51 | ED_ITS ---
HPI - General Adult General Chief complaint: Seizure Stated complaint: Seizures Time Seen by Provider: 08/12/24 13:21 History of Present Illness ED Provider: Dr. Evans HPI narrative: 44 y/o M patient; PMH epilepsy on Keppra; presents from work with concern for possible unwitnessed seizure episode immediately prior to arrival. Patient's co- worker found him on the ground out-side. The patient states he took his Keppra last night, but forgot this morning because he was rushing to work. He states he has a prodrome before his seizure in which he felt his eyes flickering and himself becoming shaky. He sat himself on the ground and did not fall. The patient otherwise denies: fever or chills, SOB, cough/congestion, chest pain, nausea/vomiting, abdominal pain, headache. He does not have a neurologist, his PCP prescribes his Keppra. Related Data Previous Rx's ?Medication ?Instructions ?Recorded naproxen 500 mg tablet 500 mg PO BID PRN pain #10 tabs 01/03/20 ondansetron HCl 4 mg tablet 4 mg PO Q6H PRN nausea and 01/03/20 (Zofran) vomiting #10 tabs omeprazole 40 mg capsule,delayed 40 mg PO DAILY 90 days #90 caps 07/16/20 release levetiracetam 1,000 mg tablet 1,000 mg PO BID 90 days #180 tabs 04/16/21 levetiracetam 1,000 mg tablet 1,000 mg PO BID 30 days #60 tabs 10/04/21 levetiracetam 1,000 mg tablet 1,000 mg PO BID 30 days #60 tabs 02/11/22 (Keppra) levetiracetam 1,000 mg tablet 1,000 mg PO BID 20 days #40 tabs 07/08/22 (Keppra) Allergies Allergy/AdvReac Type Severity Reaction Status Date / Time bupropion Allergy Unknown nausea and Verified 08/12/24 14:36 vomitting tramadol Allergy Unknown seizure Verified 08/12/24 14:36 Review of Systems 2 Review of Systems: Yes all other systems are reviewed and are negative Neurologic: Denies Abnormal speech present and Denies Sensory deficit (Neuro) PMFSH Past Medical History Attestation statement: The following information was validated with the patient. Source: unable to obtain Medical History Right rib fracture Skull fracture Diaphragmatic hernia Migraine Psychogenic nonepileptic seizure Tobacco abuse Polysubstance abuse Thrombocytopenia Vitamin D deficiency Anxiety and depression GERD (gastroesophageal reflux disease) Family History Family History Father Diabetes Mother Chronic mental illness Breast cancer Dementia Maternal Grandmother Lung cancer Maternal Grandfather Lung cancer Social History Social History (System 08/12/24 @ 14:36 by Eunice Mcdowell CNA) Smoked in Last 30 Days: Yes Use of substances other than those prescribed or required for medical reasons: No Advance Directives: No Advance Directives Information Provided: Yes Do you have a plan to hurt others: No Plan Physical Exam ED Vital Signs: Vital Signs - 24 hr 08/12/24 13:28 08/12/24 13:39 Temperature 98.0 F 98.0 F Pulse Rate 95 95 Respiratory Rate 18 18 Blood Pressure 113/64 113/64 Pulse Oximetry 98 98 Oxygen Delivery Method Room Air Room Air BMI result Body Mass Index 23.4 Patient is afebrile and hemodynamically stable. Const General: cooperative and no acute distress Orientation/consciousness: patient oriented x3 HENMT Head: Yes normal to inspection and Yes atraumatic Eyes General: appearance normal, both eyes and all related structures Pupils: Equal, round and reactive pupils present EOM: EOMs intact bilaterally Neck Neck: Yes normal visual inspection, Yes full ROM, Yes supple and No tender Chest Chest palpation & inspection: normal inspection of the chest and normal palpation of entire chest wall Resp Effort & Inspection: normal respiratory effort, able to speak in complete sentences, no cough and no respiratory distress Auscultation: clear to auscultation bilaterally Cardio Rate: regular rate Rhythm: regular rhythm Peripheral pulses: Peripheral pulses 2+ throughout GI Inspection: Yes normal to inspection, No Abdominal wall edema and No distended Palpation (GI): Soft to palpation, not firm, nontender, no guarding and not rigid Auscultation: normal bowel sounds Back/Spine/Pelvis Back: No back tenderness Neuro General: patient oriented x3 and gait normal Cranial nerves: Yes Equal, round and reactive pupils present Cognition (Neuro): normal cognition Speech: No Abnormal speech present Motor exam (neuro): 5/5 motor strength present throughout Sensory Exam: No Sensory deficit (Neuro) Coordination: [id number] test normal, [id number] test normal and Normal rapid alternating movements of the distal upper extremity present (Neuro) Course Course Course Narrative: Patient is afebrile and hemodynamically stable. Will obtain EKG and screening labs. Patient takes Keppra 1000g in the morning and evening. I verified this with his Keppra bottle which he has with him. Provided him a dose of Keppra 1000g PO. Will plan on period of observation. I do not think CT imaging is indicated at this time as patient did NOT have head trauma and has known seizure history of possible trigger of missed Keppra dose. Labs reviewed. Baseline anemia 11.7. No significant leukocytosis. Baseline mild thrombocytopenia. Ethanol negative. No significant anion gap. Patient observed for 2 hours without further seizure activity. We discussed the importance of compliance with his keppra. I provided him with information to work to establish care with a neurologist. He feels comfortable with the plan for discharge to home with out-patient follow up. Return precautions given. Medications Administered Discontinued Medications Generic Name Dose Route Start Last Admin Trade Name Freq PRN Reason Stop Dose Admin Levetiracetam 1,000 mg 08/12/24 14:02 08/12/24 14:38 Levetiracetam 1,000 Mg Tablet PO 08/12/24 14:03 1,000 mg ONCE ONE Administration Medical Decision Making Lab Data 08/12/24 14:20 08/12/24 14:20 Labs: Lab Results 08/12/24 Range/Units 14:20 WBC 11.9 H (4.8-10.8) X10*3/uL RBC 4.00 L (4.60-5.80) X10*6/uL Hgb 11.7 L (14.0-18.0) g/dl Hct 35.5 L (42.0-52.0) % MCV 88.8 (80.0-98.0) fL MCH 29.3 (27.0-33.0) pg MCHC 33.0 (31.0-36.0) g/dl RDW 13.3 (11.0-16.0) % Plt Count 147 L (160-400) X10*3/uL MPV 9.4 (9.4-12.4) fL Immature Gran % (Auto) 0.3 (0.0-0.4) % Neut % (Auto) 77.3 H (45-73) % Lymph % (Auto) 14.6 L (20-40) % [place] % (Auto) 6.1 (2-11) % Eos % (Auto) 1.1 (0-4) % Baso % (Auto) 0.6 (0-2) % Lymph # (Auto) 1.7 (1.2-4.9) X10*3/uL [place] # (Auto) 0.7 (0.1-1.2) X10*3/uL Eos # (Auto) 0.1 (0.0-0.4) X10*3/uL Baso # (Auto) 0.1 (0.0-0.2) X10*3/uL Abs Immat Gran (auto) 0.04 H (0.00-0.03) X10*3/uL Absolute Neuts (auto) 9.2 H (2.0-8.3) x10*3/uL Absolute Nucleated RBC 0.000 (0.0-0.012) X10*3/uL Nucleated RBC % (auto) 0.0 (0.0-0.2) /100WBC Sodium 139 (135-145) mmol/L Potassium 3.6 (3.3-5.1) mmol/L Chloride 107 (96-108) mmol/L Carbon Dioxide 27 (22-29) mmol/L Anion Gap 9 L (12-20) BUN 13 (9-16) mg/dL Creatinine 0.78 (0.5-1.4) mg/dL Estim Creat Clear Calc 111.3 Estimated GFR > 60 Random Glucose 124 H (60-115) mg/dL Calcium 8.5 (8.4-10.2) mg/dL Total Bilirubin 0.3 (0.0-1.0) mg/dL Direct Bilirubin 0.1 (0.0-0.5) mg/dL AST 31 (5-37) U/L ALT 22 (0-40) U/L Alkaline Phosphatase 67 (39-117) U/L Total Protein 6.5 (6.5-8.0) g/dL Albumin 3.8 (3.5-5.0) g/dL Lipase 22 (8-78) U/L Ethyl Alcohol < 10 mg/dL Independent Interpretation I performed an independent interpretation of an: EKG Interpretation: NSR 83BPM with normal intervals, without ischemic changes. No prior available for comparison. Discharge Plan Discharge Clinical Impression: Seizure Patient Disposition: Home, Self-Care Instructions: Recurrent Seizures in Adults (ED) Additional Instructions: As we discussed, you were seen after a likely seizure today - possibly due to missing a dose of your keppra this morning. Please call your primary doctor to make him aware of your recent emergency department visit. Call to make the earliest appointment possible with the neurology team. Return to the emergency department with any concerns! Prescriptions: No Action omeprazole 40 mg capsule,delayed release(DR/EC) 40 mg PO DAILY 90 Days Qty: 90 2RF levetiracetam 1,000 mg tablet 1,000 mg PO BID 90 Days Qty: 180 0RF levetiracetam 1,000 mg tablet 1,000 mg PO BID 30 Days Qty: 60 1RF ondansetron HCl [Zofran] 4 mg tablet 4 mg PO Q6H PRN (Reason: nausea and vomiting) Qty: 10 0RF naproxen 500 mg tablet 500 mg PO BID PRN (Reason: pain) Qty: 10 0RF levetiracetam [Keppra] 1,000 mg tablet 1,000 mg PO BID 30 Days Qty: 60 0RF levetiracetam [Keppra] 1,000 mg tablet 1,000 mg PO BID 20 Days Qty: 40 0RF Referrals: [facility] [Provider Group] Print Language: French
--- OUTSIDE RECORDS SUMMARY | 2024-08-12 14:13 | XMS_ITS | Continuity of Care Document ---
Author Organization [facility] Address [address] [place] [address] [address] [place] [address] Phone Care Team Providers Care Medical Engineer Name Role [facility] [place] Unavailable Unav ailable Procedures Procedure Date Radiologic Exam, Chest; Single View Advance Directives Directive Yes / No Effective Date File Name No Information Encounters Encounter Description Practice Location Reason(s) For Visit Diagnoses Date Provider Providers Copied on Encounter Musculoskelet al [facility], [address] [place] [address], [id number], tel:[phone] [facility] No Information 9 [facility]. [address] [place] [address], [address], [place], [id number], [place]. tel:[phone] Referring Provider: Norman Chavez MD, [address], [address]. tel:[phone] Family History Family Member Type Diagnosis Age At Onset No Information Payers Payer name Insurance type Covered democrat ID Authoriza tion(s) No Information Social History Type Description Quantity Date Captured Comments Sex Male Smoking Status No Information Chief Complaint And Reason For Visit No Information Reason For Referral Reason For Referral No Information Plan Of Treatment Date Type Action Status Future Order: Lab Order [id number] ([id number]), Appointment on: , Sent on: Sent History Of Present Illness Encounter Date Complaint History Of Prese nt Illness No Information Functional Status Date Functional Assessmen t No Information Instructions Date Instruction Additional Infor mation No Information Assessments Type Assessment Date No Information Patient Care Teams Name Effective Dates (start - stop) Status Members No Information
[2024-08-12 14:27] LABS: MANUAL DIFF FLAG NO
[2024-08-12 14:28] LABS: Basophils Absolute Auto 0.1 X10*3/uL (0.0-0.2); Basophils Percent Auto 0.6 % (0-2); Eosinophils Absolute Auto 0.1 X10*3/uL (0.0-0.4); Eosinophils Percent Auto 1.1 % (0-4); Hematocrit 35.5 % (42.0-52.0); Hemoglobin 11.7 g/dl (14.0-18.0); Imm Gran Abs Auto 0.04 X10*3/uL (0.00-0.03); Imm Gran Pct Auto 0.3 % (0.0-0.4); Lymphocytes Absolute Auto 1.7 X10*3/uL (1.2-4.9); Lymphocytes Percent Auto 14.6 % (20-40); Mean Corpuscular Hemoglobin 29.3 pg (27.0-33.0); Mean Corpuscular Volume 88.8 fL (80.0-98.0); Mean Platelet Volume 9.4 fL (9.4-12.4); Monocytes Absolute Auto 0.7 X10*3/uL (0.1-1.2); Monocytes Percent Auto 6.1 % (2-11); Neutrophils Absolute Auto 9.2 x10*3/uL (2.0-8.3); Neutrophils Percent Auto 77.3 % (45-73); Platelet Count 147 X10*3/uL (160-400); Red Cell Distribution Width 13.3 % (11.0-16.0); White Blood Count 11.9 X10*3/uL (4.8-10.8)
[2024-08-12] MEDS: levETIRAcetam 1,000 MG TABLET 1000 MG PO (14:38)
[2024-08-12 14:54] LABS: Alanine Aminotransferase 22 U/L (0-40); Albumin Level 3.8 g/dL (3.5-5.0); Alkaline Phosphatase 67 U/L (39-117); Anion Gap 9 (12-20); Aspartate Amino Transferase 31 U/L (5-37); Bilirubin Direct 0.1 mg/dL (0.0-0.5); Bilirubin Total 0.3 mg/dL (0.0-1.0); Blood Urea Nitrogen 13 mg/dL (9-16); Calcium 8.5 mg/dL (8.4-10.2); Carbon Dioxide 27 mmol/L (22-29); Chloride 107 mmol/L (96-108); Creatinine Clr Calc Pharmacy 111.3; Estimated Glomerular Filt Rate > 60; Ethanol < 10 mg/dL; Glucose Random 124 mg/dL (60-115); Lipase 22 U/L (8-78); Potassium 3.6 mmol/L (3.3-5.1); Sodium 139 mmol/L (135-145); Total Protein 6.5 g/dL (6.5-8.0)
[2024-08-12 15:07] LABS: Lactic Acid 2.7 mmol/L (0.5-2.0)
[2024-08-12 15:14] VITALS: BP 106/58; PULSE 69; RESP 17; TEMP 36.8; O2SAT 96
[2024-08-12 16:25] LABS: Reflex Lactate? Lactic Acid Added
== END 2024-08-12 15:15 | disposition home or self-care (01) ==
PROVIDERS: Emergency Provider Emergency Medicine; PCP General Practice
DX: I49.9 Cardiac arrhythmia, unspecified (principal); R56.9 Unspecified convulsions; Z51.81 Encounter for therapeutic drug level monitoring; Z79.899 Other long term (current) drug therapy
CPT/HCPCS: 36415; 80048; 80076; 80307; 83605; 83690; 85025; 93005; 99283; 99284

== ENCOUNTER → 2024-08-12 13:34 | Outpatient (BNV) | payer MEDICAID, SELFPAY | PROVIDERS: Emergency Provider Emergency Medicine; PCP General Practice; Visit Provider Internal Medicine | DX: I49.9 Cardiac arrhythmia, unspecified (principal) | CPT/HCPCS: 93010 ==